=== PATIENT | female | born 1970 | race Caucasian/White ===

== ENCOUNTER 2016-04-16 15:20 | Emergency (ER) | payer OTHER ==
[~2016-04-16] VITALS: Ht 154.9 cm; Wt 54.4 kg
[~2016-04-16 15:20] MED LIST: PENT100C PO; PHEN-318 PO; [UNRECOGNIZED DRUG - OTHER] PO
--- NOTE | 2016-04-16 16:26 | PHYS DOC ---
Past Medical History Past Medical History: Other Additional Past Medical Histor: interstital cystitis Past Surgical History: , Oophorectomy, Other Additional Past Surgical Histo: cystoscopy Alcohol Use: Occasionally Drug Use: None Adult General Chief Complaint Chief Complaint: ABDOMINAL PAIN HPI HPI Patient is a 46 year old female who presents with pelvic pain. Patient reports starting this morning she has been having pain in her left pelvis. She reports this started as mild cramping and when he gets worse. No clear inciting or mitigating factors. She has tried Tylenol and Advil home with insufficient relief. Patient is on her menstrual cycle. No other acute complaints. Review of Systems Review of Systems Constitutional: Denies fever or chills Eyes: Denies change in visual acuity or eye pain HENT: Denies nasal congestion or sore throat Respiratory: Denies cough or shortness of breath Cardiovascular: Denies chest pain GI: L pelvic pain. Denies nausea, vomiting, bloody stools or diarrhea : Denies dysuria or hematuria; vaginal bleeding (on menstrual cycle) Musculoskeletal: Denies back pain or joint pain Integument: Denies rash or skin lesions Neurologic: Denies headache, focal weakness or sensory changes Current Medications Current Medications Current Medications Medications (Trade) Dose Ordered Sig/Tamara Start Time Stop Time Status Last Admin Dose Admin Acetaminophen/ Hydrocodone Bitart (Lortab 5/325) 2 tab 1X ONCE 04/16/16 16:30 04/16/16 16:31 DC 04/16/16 16:34 2 TAB Info (Do NOT chart on this entry -- for MONITORING) 1 each PRN DAILY PRN 04/16/16 18:30 04/16/16 19:44 DC Iohexol (Omnipaque 300 Mg/ml) 75 ml 1X ONCE 04/16/16 18:30 04/16/16 18:31 DC 04/16/16 18:43 75 ML Allergies Allergies Allergies Coded Allergies Type Severity Reaction Last Updated Verified Penicillins Allergy Intermediate rash 02/10/15 Yes Physical Exam Physical Exam Constitutional: Well developed, well nourished, non-toxic appearance HENT: Normocephalic, atraumatic, bilateral external ears normal Eyes: EOMI, conjunctiva normal, no discharge Neck: Normal range of motion, no stridor Cardiovascular: Heart rate normal, regular rhythm, no murmur Lungs & Thorax: Bilateral breath sounds clear to auscultation Abdomen: Bowel sounds normal, soft, non-distended, marked lower abdominal TTP with guarding Pelvic: Dark blood in vault; no CMT or adnexal tenderness, marked pain with palpation of lower abdomen Skin: Warm, dry, no erythema, no rash Extremities: No obvious deformity, no edema Neurologic: Alert and oriented X 3, no gross deficits noted Current Patient Data Vital Signs Vital Signs Date Time Temp Pulse Resp B/P Pulse Ox O2 Delivery O2 Flow Rate FiO2 04/16/16 19:39 70 20 126/75 98 Room Air 04/16/16 15:50 98.0 98.0 Lab Values Laboratory Tests Test 04/16/16 15:55 04/16/16 16:10 White Blood Count 6.6x10^3/uL (4.0-11.0) Red Blood Count 4.07x10^6/uL (3.50-5.40) Hemoglobin 12.5g/dL (12.0-15.5) Hematocrit 37.1% (36.0-47.0) Mean Corpuscular Volume 91fL (79-100) Mean Corpuscular Hemoglobin 31pg (25-35) Mean Corpuscular Hemoglobin Concent 34g/dL (31-37) Red Cell Distribution Width 13.1% (11.5-14.5) Platelet Count 205x10^3/uL (140-400) Neutrophils (%) (Auto) 59% (31-73) Lymphocytes (%) (Auto) 33% (24-48) Monocytes (%) (Auto) 6% (0-9) Eosinophils (%) (Auto) 2% (0-3) Basophils (%) (Auto) 1% (0-3) Neutrophils # (Auto) 3.9x10^3uL (1.8-7.7) Lymphocytes # (Auto) 2.2x10^3/uL (1.0-4.8) Monocytes # (Auto) 0.4x10^3/uL (0.0-1.1) Eosinophils # (Auto) 0.1x10^3/uL (0.0-0.7) Basophils # (Auto) 0.0x10^3/uL (0.0-0.2) Sodium Level 142mmol/L (136-145) Potassium Level 3.7mmol/L (3.5-5.1) Chloride Level 107mmol/L (98-107) Carbon Dioxide Level 28mmol/L (21-32) Anion Gap 7 (6-14) Blood Urea Nitrogen 12mg/dL (7-20) Creatinine 0.8mg/dL (0.6-1.0) Estimated GFR (Cockcroft-Gault) 77.6 BUN/Creatinine Ratio 15 (6-20) Glucose Level 86mg/dL (70-99) Calcium Level 8.7mg/dL (8.5-10.1) Total Bilirubin 0.2mg/dL (0.2-1.0) Aspartate Amino Transferase (AST) 16U/L (15-37) Alanine Aminotransferase (ALT) 21U/L (14-59) Alkaline Phosphatase 46U/L (46-116) Total Protein 7.8g/dL (6.4-8.2) Albumin 4.1g/dL (3.4-5.0) Albumin/Globulin Ratio 1.1 (1.0-1.7) Lipase 162U/L (73-393) Urine Collection Type Unknown Urine Color Straw Urine Clarity Clear Urine pH 5.5 Urine Specific Horatio <=1.005 Urine Protein Negativemg/dL (NEG-TRACE) Urine Glucose (UA) Negativemg/dL (NEG) Urine Ketones (Stick) Negativemg/dL (NEG) Urine Blood Moderate (NEG) Urine Nitrite Negative (NEG) Urine Bilirubin Negative (NEG) Urine Urobilinogen Dipstick 0.2mg/dL (0.2 mg/dL) Urine Leukocyte Esterase Negative (NEG) Urine RBC 3-5/HPF (0-2) Urine WBC 0/HPF (0-4) Urine Squamous Epithelial Cells Few/LPF Urine Bacteria Few/HPF (0-FEW) Urine Test Negative (NEG) Laboratory Tests 04/16/16 15:55 Laboratory Tests 04/16/16 15:55 EKG EKG [] Radiology/Procedures Radiology/Procedures Pelvic US: IMPRESSION 1. Status post right oophorectomy. 2. Otherwise, unremarkable pelvic ultrasound. CT A/P: IMPRESSION No acute abnormality identified in the abdomen or pelvis. Course & Med Decision Making Course & Med Decision Making Pertinent Labs and Imaging studies reviewed. (See chart for details) Patient is 46 year old female who presents with pelvic pain. DDx includes ovarian cyst, ovarian torsion, TOA, dysmenorrhea, colitis. Labs, pelvic swabs, pelvic ultrasound. Oral pain medication ordered for patient comfort (oral instead of IV per patient request). Pelvic ultrasound results as above. Given amount of discomfort, CT scan also ordered to r/o acute pathology. Results as above. Labs unremarkable. Discussed results with patient, who reports pain significantly improved at this time. Will plan discharge home with prescription for pain meds, instructions for follow-up with PATIENT FINANCIAL REP, return precautions. Dragon Disclaimer Dragon Disclaimer This electronic medical record was generated, in whole or in part, using a voice recognition dictation system. Departure Departure Impression: Primary Impression: Pelvic pain Disposition: HOME, SELF-CARE Condition: STABLE Referrals: DOMINICK SOLANO DO (PCP) Patient Instructions: Pelvic Pain, Female Additional Instructions: Thank you for allowing us to provide care today in the Emergency Department. Take the provided medication as directed. Use caution when taking this medication as it can make you drowsy. Schedule a follow up appointment with your ObGyn. Return promptly to the Emergency Department if you develop any new or concerning symptoms. Scripts Hydrocodone/Apap 5-325 ([place] 5-325 Tablet)1 Each Tablet1 Tab PO PRN Q6HRS PRN PAIN #15 TAB Prov:ANN MATHIS MD 04/16/16 ANN MATHIS MD Apr 16, 2016 16:26
[2016-04-16] MEDS ORDERED: HYDROCODONE/APAP 5/325MG TABLET. PO ONE (16:30)
[2016-04-16 16:33] LABS: NEG OBC UR NEG; POS OBC UR POS
[2016-04-16 16:35] LABS: BASO % 1 % (0-3); EOS % 2 % (0-3); HEMATOCRIT 37.1 % (36.0-47.0); HEMOGLOBIN 12.5 g/dL (12.0-15.5); LYMPH # 2.2 x10^3/uL (1.0-4.8); LYMPH % 33 % (24-48); MEAN CORPUSCULAR HEMOGLOBIN 31 pg (25-35); MEAN CORPUSCULAR HGB CONC 34 g/dL (31-37); MEAN CORPUSCULAR VOLUME 91 fL (79-100); MONO % 6 % (0-9); NEUT % 59 % (31-73); PLATELET COUNT 205 x10^3/uL (140-400); RED BLOOD COUNT 4.07 x10^6/uL (3.50-5.40); RED CELL DISTRIBUTION WIDTH 13.1 % (11.5-14.5); WHITE BLOOD COUNT 6.6 x10^3/uL (4.0-11.0)
[2016-04-16 16:42] LABS: BILIRUBIN,URINE NEGATIVE (NEG); GLUCOSE,URINE NEGATIVE (NEG); NITRITE,URINE NEGATIVE (NEG); PH,URINE 5.5; PROTEIN,URINE NEGATIVE (NEG-TRACE); UROBILINOGEN,URINE 0.2 mg/dL (0.2 mg/dL)
[2016-04-16 16:44] LABS: BACTERIA,URINE FEW /HPF (0-FEW); SQUAMOUS EPITHELIAL CELL,UR FEW /LPF; WBC,URINE 0 /HPF (0-4)
[2016-04-16 16:47] LABS: CALCIUM 8.7 mg/dL (8.5-10.1); CREATININE 0.8 mg/dL (0.6-1.0); GFR 77.6; POTASSIUM 3.7 mmol/L (3.5-5.1)
[2016-04-16 16:53] LABS: ALBUMIN 4.1 g/dL (3.4-5.0); ALBUMIN/GLOBULIN RATIO 1.1 (1.0-1.7); TOTAL BILIRUBIN 0.2 mg/dL (0.2-1.0); TOTAL PROTEIN 7.8 g/dL (6.4-8.2)
--- NOTE | 2016-04-16 17:34 | RAD ---
PROCEDURE Ultrasound pelvis. HISTORY Left lower quadrant pain, evaluate for torsion. TECHNIQUE Transabdominal imaging was performed. COMPARISON None. FINDINGS Uterus measures 9.4 centimeters in length. No uterine masses are identified. Endometrial thickness is 5 millimeters, within normal limits. Left ovary measures 2.1 x 4.2 x 2.5 centimeters and demonstrates small physiologic follicle. Left ovary demonstrates normal vascular flow upon Doppler interrogation and is without evidence of torsion. Right ovary is not seen, compatible with previous oophorectomy. No adnexal masses are seen. No significant free fluid is identified. IMPRESSION 1. Status post right oophorectomy. 2. Otherwise, unremarkable pelvic ultrasound. Electronically signed by: Phillip Duggan MD (Apr 16, 2016 17:33:01)
[2016-04-16] MEDS ORDERED: IOHEXOL 300 MG/ML 75 ML VIAL IV ONE (18:30)
[2016-04-16] MEDS ORDERED: CONTRAST GIVEN MC PRN (18:30)
--- NOTE | 2016-04-16 18:58 | RAD ---
PROCEDURE CT abdomen pelvis with intravenous contrast. HISTORY Severe right-sided pelvic pain worsening since the morning. TECHNIQUE After administration of intravenous contrast only, 75 mL Omnipaque 300, CT of the abdomen and pelvis was performed. Exposure: One or more of the following individualized dose reduction techniques were utilized for this examination: 1. Automated exposure control. 2. Adjustment of the mA and/or kV according to patient size. 3. Use of iterative reconstruction technique. COMPARISON CT abdomen pelvis January 31, 2015. FINDINGS Evaluation of enteric structures may be limited by lack of oral contrast. Liver, spleen, pancreas, gallbladder, and bilateral adrenal glands are unremarkable. Bilateral kidneys enhance symmetrically. No bowel obstruction or inflammation is seen. Appendix is without evidence of inflammation. Urinary bladder is unremarkable. Uterus and adnexa have unremarkable CT appearance. Small amount of free fluid is present in the pelvis, within physiologic limits. There is mild grade 1 spondylolisthesis at L5-S1 secondary to bilateral L5 pars defects. IMPRESSION No acute abnormality identified in the abdomen or pelvis. Electronically signed by: Phillip Duggan MD (Apr 16, 2016 18:57:10)
[2016-04-16] MEDS ORDERED: HYDR-971 PO (19:31)
[2016-04-16 19:39] VITALS: BP 126/75
== END 2016-04-16 19:34 | disposition home or self-care (01) ==
LOC: ER 15:20
DX: R10.2 Pelvic and perineal pain (principal); Z90.721 Acquired absence of ovaries, unilateral; Z88.0 Allergy status to penicillin
CPT/HCPCS: 36415; 74177; 76856; 80053; 81001; 81025; 83690; 85027; 87491; 87591; 99285; Q0111; Q9967

== ENCOUNTER → 2016-09-26 | Outpatient (CLI) | payer OTHER ==
[~2016-09-26] MED LIST changes: +HYDR-971 PO
--- NOTE | 2016-09-26 14:26 | RAD ---
DATE: 09/26/2016 EXAM: DIGITAL DIAGNOSTIC BILATERAL HISTORY: Follow-up bilateral breast densities. COMPARISON: Bilateral screening mammogram from 09/12/2015 and bilateral breast ultrasound from 09/26/2015. This study was interpreted with the benefit of Computerized Aided Detection (CAD). FINDINGS: The patient's prior mammogram demonstrated nodular densities in the outer portions of both breasts on the CC views. This was shown to represent a cyst on the right with ultrasound performed at the same time. A recommendation was made at that time for the patient to undergo 6 month follow-up. However, the patient did not return for six-month follow-up. The patient returns for a 12 month follow-up. The parenchymal pattern is stable. No new mass is identified. No malignant-appearing microcalcifications are seen. The axillae are unremarkable. Nodular density in the upper slightly outer right breast is similar. Right breast ultrasound: Sonographic interrogation of the upper outer right breast was performed. There is a simple cyst at the 11 o'clock location, 2 cm from the nipple. This is slightly larger when compared with prior exam, now measuring 8 mm x 5 mm x 9 mm compared with 5 mm x 5 mm x 5 mm on prior. No solid lesion is seen. Breast Density: HETERO The breast parenchyma is heterogeneously dense, which could reduce sensitivity of mammography. Breast parenchyma level C. IMPRESSION: Slight increase in size of a simple cyst 11 o'clock location of the right breast. No solid lesion is seen. The patient may return to routine annual screening mammography. BI-RADS CATEGORY: 2 BENIGN FINDING(S) RECOMMENDED FOLLOW-UP: 12M 12 MONTH FOLLOW-UP PQRS compliance statement: Patient information was entered into a reminder system with a target due date 09/26/2017 for the next mammogram. Mammography is a sensitive method for finding small breast cancers, but it does not detect them all and is not a substitute for careful clinical examination. A negative mammogram does not negate a clinically suspicious finding and should not result in delay in biopsying a clinically suspicious abnormality. "Our facility is accredited by the [employer] Mammography Program."
--- NOTE | 2016-09-27 13:01 | RAD ---
DATE: 09/26/2016 EXAM: DIGITAL DIAGNOSTIC BILATERAL HISTORY: Follow-up bilateral breast densities. COMPARISON: Bilateral screening mammogram from 09/12/2015 and bilateral breast ultrasound from 09/26/2015. This study was interpreted with the benefit of Computerized Aided Detection (CAD ). FINDINGS: The patient's prior mammogram demonstrated nodular densities in the outer portions of both breasts on the CC views. This was shown to represent a cyst on the right with ultrasound performed at the same time. A recommendation was made at that time for the patient to undergo 6 month follow-up. However, the patient did not return for six-month follow-up. The patient returns for a 12 month follow-up. The parenchymal pattern is stable. No new mass is identified. No malignant- appearing microcalcifications are seen. The axillae are unremarkable. Nodular density in the upper slightly outer right breast is similar. Right breast ultrasound: Sonographic interrogation of the upper outer right breast was performed. There is a simple cyst at the 11 o'clock location, 2 cm from the nipple. This is slightly larger when compared with prior exam, now measuring 8 mm x 5 mm x 9 mm compared with 5 mm x 5 mm x 5 mm on prior. No solid lesion is seen. Breast Density: HETERO The breast parenchyma is heterogeneously dense, which could reduce sensitivity of mammography. Breast parenchyma level C. IMPRESSION: Slight increase in size of a simple cyst 11 o'clock location of the right breast. No solid lesion is seen. The patient may return to routine annual screening mammography. BI-RADS CATEGORY: 2 BENIGN FINDING(S) RECOMMENDED FOLLOW-UP: 12M 12 MONTH FOLLOW-UP PQRS compliance statement: Patient information was entered into a reminder system with a target due date 09/26/2017 for the next mammogram. Mammography is a sensitive method for finding small breast cancers, but it does not detect them all and is not a substitute for careful clinical examination. A negative mammogram does not negate a clinically suspicious finding and should not result in delay in biopsying a clinically suspicious abnormality. "Our facility is accredited by the [employer] Mammography Program." MARLYD
== END | disposition home or self-care (01) ==
LOC: MAMMO 13:01
PROVIDERS: ATTEND Obstetrics & Gynecology
DX: R92.2 Inconclusive mammogram (principal)
CPT/HCPCS: 76641; G0204; 77066

== ENCOUNTER → 2016-11-11 | Outpatient (CLI) | payer OTHER ==
--- NOTE | 2016-11-12 10:25 | RAD ---
Bilateral breast ultrasound, 11/11/2016: History: Breast nodules, family history of breast cancer Both breasts were carefully examined. At the 11:00 location in the right breast, 2 cm from the nipple, there is a smooth 5 mm simple cyst. This cyst measures slightly smaller than on the 09/26/2016 exam. At the 12:00 location in the right breast, 3 cm in the nipple, there is a smooth 5 mm nodule with only faint low level internal echoes. This is probably a complicated cyst. At the 10:00 location in the right breast, 3 cm from the nipple, there is a 4 mm nodule with similar sonographic characteristics. At the 4:30 location in the right breast, 3-4 cm from the nipple, there is an oval-shaped smooth hypoechoic nodule with low level internal echoes. It is wider than tall. This is probably a complicated cyst. At the 1:00 location in the left breast, 3 cm from the nipple there is a smooth hypoechoic nodule with low level internal echoes. It is wider than tall. No internal vascularity is seen. It measures 5 mm in greatest diameter. This is probably a complicated cyst versus a small fibroadenoma. At the 2:00 location in the left breast, 6 cm from the nipple, there are 2 additional smooth hypoechoic nodules with sonographic characteristics similar to the lesion at 1:00. One of these measures 6 mm and the other measures 5 mm in greatest diameter. The lack of visualization of some of these nodules on the previous bilateral ultrasound exam of 09/26/2015 is probably due to technical factors. No highly suspicious breast nodules are seen. IMPRESSION: Multiple bilateral breast nodules as described above, most likely represent a combination of cysts, complicated cysts and possibly fibroadenomas. Follow-up bilateral breast ultrasound in 6 months and ongoing annual mammography is suggested. BI-RADS 3-probably benign findings
== END | disposition home or self-care (01) ==
LOC: US 15:37
PROVIDERS: ATTEND Obstetrics & Gynecology
DX: N63 Unspecified lump in breast (principal); R92.2 Inconclusive mammogram; Z80.3 Family history of malignant neoplasm of breast
CPT/HCPCS: 76641

== ENCOUNTER → 2016-12-18 | Outpatient (CLI) | payer OTHER ==
[2016-12-18 07:54] LABS: CHOLESTEROL/HDL RATIO 1.6
[2016-12-18 17:16] LABS: ESTRADIOL LEVEL 171.7 pg/mL (.); FSH 5.8 mIU/mL (.)
== END | disposition home or self-care (01) ==
LOC: LAB 07:11
PROVIDERS: ATTEND Obstetrics & Gynecology
DX: Z30.09 Encounter for other general counseling and advice on contraception (principal); N95.1 Menopausal and female climacteric states
CPT/HCPCS: 36415; 80061; 82670; 83001; 83036; 84443

== ENCOUNTER → 2017-06-09 | Outpatient (CLI) | payer OTHER | END | disposition home or self-care (01) | LOC: US 12:29 | DX: N63.20 Unspecified lump in the left breast, unspecified quadrant (principal); N60.02 Solitary cyst of left breast; N60.01 Solitary cyst of right breast | CPT/HCPCS: 76641 ==